=== PATIENT | male | born 1990 | race Caucasian/White ===

== ENCOUNTER 2017-11-17 19:45 | Emergency (ER) | payer SELFPAY ==
[2017-11-17] MEDS ORDERED: Dexamethasone 10 MG/ML VIAL ONE (21:13)
[2017-11-17] MEDS ORDERED: Lidocaine 1% PF 5 ML VIAL ONE ×2 (21:15→21:17)
[2017-11-17] MEDS ORDERED: cefTRIAXone\\ROCEPHIN 500 MG VIAL ONE (21:15)
== END 2017-11-17 22:16 | disposition home or self-care (01) ==
LOC: ERS 19:45
DX: J02.9 Acute pharyngitis, unspecified (principal); F17.210 Nicotine dependence, cigarettes, uncomplicated; Z79.82 Long term (current) use of aspirin
CPT/HCPCS: 87081; 87430; 96372; J0696; J1100; J2001

== ENCOUNTER 2017-11-19 18:16 | Emergency (ER) | payer SELFPAY ==
[2017-11-19] MEDS ORDERED: Clindamycin/D5W 900 mg/50 ml Premix Bag ONE (18:51)
[2017-11-19] MEDS ORDERED: Lidocaine 4% Topical Sol 50 ML BOT ONE (18:52)
[2017-11-19] MEDS ORDERED: Lidocaine 1% w/Epinephrine 1:100K 20 ML VIAL ONE (18:52)
[2017-11-19] MEDS ORDERED: Fentanyl 100 MCG/2 ML VIAL ONE (18:53)
[2017-11-19] MEDS ORDERED: Dexamethasone 4 mg/ml Vial ONE (18:54)
[2017-11-19] MEDS ORDERED: Lidocaine Viscous Sol 2% 15 ml UD Cup ONE (19:31)
[2017-11-19] MEDS ORDERED: Ketorolac Tromethamine 30 MG/ML VIAL ONE (20:32)
== END 2017-11-19 20:53 | disposition home or self-care (01) ==
LOC: ERS 18:16
DX: J36 Peritonsillar abscess (principal); F17.210 Nicotine dependence, cigarettes, uncomplicated; Z86.73 Personal history of transient ischemic attack (TIA), and cerebral infarction without residual deficits; Z79.899 Other long term (current) drug therapy
CPT/HCPCS: 42700; 96365; 96375; J0696; J1100; J1885; J2001; J2270; J3010; J3490

== ENCOUNTER 2018-08-24 04:30 | Inpatient (IN) | payer SELFPAY ==
[2018-08-24 05:29] LABS: #Basophils 0.1 thou/uL (0.0-0.2); #Eosinphils 0.1 thou/uL (0.0-0.7); #Lymphocytes 1.9 thou/uL (1.20-3.40); #Monocytes 0.7 thou/uL (0.11-0.59); #Neutrophils 9.4 thou/uL (1.40-6.50); %Basophils 0.7 % (0.0-1.0); %Eosinophils 0.7 % (0.0-10.0); %Lymphocytes 15.7 % (21.0-51.0); %Monocytes 5.6 % (0.0-10.0); %Neutrophils 77.4 % (42.0-75.0); Mean Corpuscular HGB CONC 34.4 g/dL (32.0-36.0); Mean Corpuscular Hemoglobin 34.7 pg (27.0-31.0); Mean Platelet Volume 7.8 fL (7.4-10.4); Platelet Count 252 thou/uL (130-400); RBC Distribution Width 11.4 % (11.5-14.5); White Blood Cell (WBC) Count 12.1 thou/uL (4.8-10.8)
[2018-08-24 05:37] LABS: Bilirubin Negative (Negative); Blood, Urine Negative (Negative); Clarity CLEAR (Clear); Glucose, Urine (Dipstick) Negative (Negative); Leukocyte Negative (Negative); Nitrite Negative (Negative); Protein, Urine (Dipstick) Negative (Neg-Trace); Specific Gravity, Urine 1.019 (1.002-1.036); pH, Urine 7.5 (5.0-9.0)
[2018-08-24] MEDS ORDERED: Morphine 4 MG/ML VIAL ONE (05:50)
[2018-08-24] MEDS ORDERED: Ondansetron PF 4 MG/2 ML Vial ONE (05:50)
[2018-08-24 05:53] LABS: ALT (SGPT) 23 U/L (8-55); AST (SGOT) 33 U/L (5-34); Albumin 4.7 g/dL (3.5-5.0); Alkaline Phosphatase 100 U/L (40-150); Anion Gap 17 mmol/L (10-20); BUN (Urea Nitrogen) 6 mg/dL (8.9-20.6); Bilirubin, Total 0.5 mg/dL (0.2-1.2); Calc. Creatinine Clearance 0 mL/min (70-130); Calcium 10.3 mg/dL (7.8-10.44); Carbon Dioxide 24 mmol/L (22-29); Chloride 101 mmol/L (98-107); Estimated GFR-MDRD Greater than 90; Globulin 3.6 g/dL (2.4-3.5); Glucose 107 mg/dL (70-105); Lipase 589 U/L (8-78); Protein, Total 8.3 g/dL (6.0-8.3); Sodium 138 mmol/L (136-145)
[2018-08-24 06:26] LABS: CKMB 1.6 ng/mL (0-6.6); Troponin I Less than 0.010 ng/mL (< 0.028)
--- NOTE | 2018-08-24 07:46 | PDOC.FPRHP ---
- History of Present Illness Chief Complaint: abdominal pain History of Present Illness: This is a 28 yo M who presented to the Ed with abdominal pain. Pain started around 2100 last night about an hour after eating dinner. Patient states the pain is more in the mid epigastrium, LUQ and LLQ. Patient characterized the pain as sharp, non radiating and intense pain that is 10/10 at its worst. Laying down made it worst. Not associated with food. Patient states pain has been relieved after given medication in the ED. Patient states symptoms were constant overnight. Patient denies chest pain, NVD, chest pain, palpitations, fever, or chills. ED Course: 8mg IV morphine, 4mg IV zofran, 1L NS - Allergies/Adverse Reactions Allergies Allergy/AdvReac Type Severity Reaction Status Date / Time No Known Drug Allergies Allergy Verified 10/03/13 05:30 - Home Medications Medication Instructions Recorded Confirmed Type Aspirin 325 mg PO DAILY #0 tab 01/30/15 08/24/18 Rx - History PMHx: cerebellar stroke at age 24 PSHx: fixation of thumb fracture FHx: Dad: HTN Social: tobacco use: 1 pack/day for 13 years; alcohol use - 3 beers/day, more on the weekends; denies drug use - Review of Systems General: denies: fever/chills, weight/appetite/sleep changes, night sweats, fatigue Eyes: denies: eye pain, vision changes ENT: denies: nasal congestion, rhinorrhea Respiratory: denies: cough, congestion, shortness of breath Cardiovascular: denies: chest pain, palpitation, edema Gastrointestinal: reports: abdominal pain. denies: nausea, vomiting, diarrhea, constipation Genitourinary: denies: dysuria Skin: denies: rashes, lesions Musculoskeletal: denies: pain, tenderness, stiffness - Vital signs BP: 124/81 HR: 82 RR: 16 Tmax: 98.2 Pox: 98% on RA Wt: 70kg - Physical Exam Constitutional: NAD, awake, alert and oriented, well developed HEENT: normocephalic and atraumatic, PERRLA, EOMI, grossly normal vision, grossly normal hearing Neck: supple, FROM, trachea midline Chest: no-tender to palpation, no lesions Heart: RRR, normal S1/S2, no murmurs/rubs/gallops, pulses present, no edema Lungs: CTAB, no respiratory distress, good air movement, no wheezing -Abdomen: mildly tense, nondistended, guarding, TTP in midepigastrium and WEI and LLQ Musculoskeletal: normal structure, normal tone, ROM grossly normal Neurological: no focal deficit Skin: no rash/lesions, good turgor Psychiatric: normal mood and affect, good judgment and insight, intact recent and remote memory FMR H&P: Results - Labs Result Diagrams: 08/25/18 04:18 08/25/18 04:18 Lab results: WBC 12.1 thou/uL (4.8-10.8) H 08/24/18 05:18 Hgb 16.0 g/dL (14.0-18.0) 08/24/18 05:18 Hct 46.5 % (42.0-52.0) 08/24/18 05:18 MCV 101.0 fL (78.0-98.0) H 08/24/18 05:18 Plt Count 252 thou/uL (130-400) 08/24/18 05:18 Neutrophils % 77.4 % (42.0-75.0) H 08/24/18 05:18 Sodium 138 mmol/L (136-145) 08/24/18 05:18 Potassium 4.0 mmol/L (3.5-5.1) 08/24/18 05:18 Chloride 101 mmol/L (98-107) 08/24/18 05:18 Carbon Dioxide 24 mmol/L (22-29) 08/24/18 05:18 BUN 6 mg/dL (8.9-20.6) L 08/24/18 05:18 Creatinine 0.82 mg/dL (0.6-1.3) 08/24/18 05:18 Glucose 107 mg/dL (70-105) H 08/24/18 05:18 Calcium 10.3 mg/dL (7.8-10.44) 08/24/18 05:18 Total Bilirubin 0.5 mg/dL (0.2-1.2) 08/24/18 05:18 AST 33 U/L (5-34) 08/24/18 05:18 ALT 23 U/L (8-55) 08/24/18 05:18 Alkaline Phosphatase 100 U/L (40-150) 08/24/18 05:18 CK-MB (CK-2) 1.6 ng/mL (0-6.6) 08/24/18 05:18 Serum Total Protein 8.3 g/dL (6.0-8.3) 08/24/18 05:18 Albumin 4.7 g/dL (3.5-5.0) 08/24/18 05:18 Lipase 589 U/L (8-78) H 08/24/18 05:18 Urine Ketones Negative mg/dL (Negative) 08/24/18 05:20 Urine Blood Negative (Negative) 08/24/18 05:20 Urine Nitrite Negative (Negative) 08/24/18 05:20 Ur Leukocyte Esterase Negative (Negative) 08/24/18 05:20 FMR H&P: A/P - Problem List (1) Pancreatitis Current Visit: Yes Status: Acute Code(s): K85.90 - ACUTE PANCREATITIS WITHOUT NECROSIS OR INFECTION, UNSP (2) ETOH abuse Current Visit: No Status: Chronic Code(s): F10.10 - ALCOHOL ABUSE, UNCOMPLICATED (3) History of CVA (cerebrovascular accident) Current Visit: No Status: Chronic Code(s): Z86.73 - PRSNL HX OF TIA (TIA), AND CEREB INFRC W/O RESID DEFICITS (4) Tobacco abuse Current Visit: No Status: Acute Code(s): Z72.0 - TOBACCO USE - Plan Pancreatitis - lipase elevated 589; Will trend lipase - Will give LR @ 150mls/hr - NPO for now; can consider low fat diet once pain improved - Morphine PRN for pain - RUQ US - lipid panel, LDH pending Hx of ETOH - ASE protocol initiated Hx of Tobacco use - 13 pack year smoking hx - Cessation counseling Hx of Marijuana - denies current use - Will order UDS and serum drug Hx of Cerebellar Stroke - aware, continue home ASA DISPO: admit to medical, inpt CODE: FULL Case discussed with Dr. Rod FMR H&P: Upper Level - Pertinent history Patient is a 28 year old male with a history of alcohol abuse who presents to the ED with several hour history of abdominal pain. He has never had pain like this before. He denies nausea, vomiting. He is unsure of what precipitated the pain. - Pertinent findings Vitals: BP: 124/81 HR: 82 RR: 16 Tmax: 98.2 Pox: 98% on RA Physical Exam: General: alert and oriented; in no distress. Abdominal: soft, tenderness to palpation in LUQ, and midepigastrium. No rebound tenderness. Labs as described above. - Plan Date/Time: 08/24/18 8028 I, Susan Alston, have evaluated this patient and agree with findings/plan as outlined by wedding planning internship resident. Pertinent changes/additions are listed here. Acute pancreatitis - will admit patient to medical floor for observation - IV fluids, pain medication. NPO. - Will advance diet as patient is able to tolerate it. Alcohol abuse - will order ASE protocol with prn medications available. Tobacco abuse - nicotine replacement therapy. Prior history of CVA. Attending Addendum - Attending Addendum Date/Time: 08/25/18 0502 I personally evaluated the patient and discussed the management with Dr. Alston and Dr. Scruggs on the morning of 08/24/2018. I agree with the History, Examination, Assessment and Plan documented above with any addition or exceptions noted below.
[2018-08-24 08:24] LABS: Acetaminophen Less than 6.0 mcg/mL (10.0-30.0); Alcohol Less than 10 mg/dL (Less than 10); Salicylate Less than 8.0 mg/dL (15.0-30.0)
[2018-08-24] MEDS ORDERED: Ondansetron ODT 4 MG TAB PO PRN (08:44)
[2018-08-24] MEDS ORDERED: Ondansetron PF 4 MG/2 ML Vial IVP PRN ×2 (08:44→21:59)
[2018-08-24] MEDS ORDERED: Morphine 4 MG/ML VIAL SLOW IVP PRN (08:44)
[2018-08-24] MEDS: Nicotine 21 MG PATCH TD SCH (09:50)
[2018-08-24] MEDS: Lactated Ringer's 1,000 ML IV SCH ×2 (10:09→14:30)
[2018-08-24 11:43] LABS: Amphetamine Not Detected (NotDetected); Barbiturates Screen Not Detected (NotDetected); Benzodiazepine Screen Not Detected (NotDetected); Cocaine Metabolite Screen Not Detected (NotDetected); Medtox Control Line Valid? VALID (VALID); Medtox Reader # READER 1; Methadone Not Detected (NotDetected); Methamphetamine Not Detected (NotDetected); Opiate Screen Detected (NotDetected); Oxycodone Screen Not Detected (NotDetected); Phencyclidine (PCP) Not Detected (NotDetected); THC/Cannabinoid Screen Detected (NotDetected); Tricyclic Screen Not Detected (NotDetected)
[2018-08-24 11:45] LABS: Cardiac Risk 2.4 (Less than 4.5)
[2018-08-24] MEDS ORDERED: ISOVUE-370 76%-LOCM 1 ML ONE (12:05)
[2018-08-24] MEDS: Morphine 2 MG/ML SYRINGE SLOW IVP PRN ×5 (12:33→21:17)
[2018-08-24] MEDS ORDERED: Aspirin 325 MG TAB PO SCH (13:15)
--- NOTE | 2018-08-24 15:36 | ULT ---
ULTRASOUND ABDOMEN LIMITED: (RIGHT UPPER QUADRANT) HISTORY: Epigastric pain and pancreatis in 28-year-old male. FINDINGS: The gallbladder has normal wall thickness and has no evidence of gallstones. The hepatic echogenicit y is normal. The right kidney has normal echogenicity and has no hydronephrosis. The pancreas is vi sualized, although ultrasound is relatively insensitive for pancreatic pathology compared to CT and M RI. There is no biliary dilation. The common duct caliber is 4 mm. IMPRESSION: Normal. chay POS: BENJIE
[2018-08-24] MEDS ORDERED: Melatonin 3 MG TAB PO PRN (18:06)
[2018-08-24] MEDS ORDERED: hydrOXYzine 10 MG TAB PO PRN (18:06)
[2018-08-24] MEDS ORDERED: diphenhydrAMINE 50 MG/ML VIAL IVP PRN ×2 (21:29→21:59)
[2018-08-24] MEDS ORDERED: fentaNYL Citrate/PF 2,000 MCG in Sodium Chloride 0.9% 60 ML IV PRN (21:59)
[2018-08-24] MEDS ORDERED: Zolpidem Tartrate 5 MG TAB PO PRN (21:59)
[2018-08-24] MEDS ORDERED: diphenhydrAMINE 25 MG CAP PO PRN (21:59)
[2018-08-24] MEDS ORDERED: Promethazine HCl 25 MG/ML VIAL IM PRN (21:59)
[2018-08-24] MEDS ORDERED: diphenhydrAMINE 50 MG/ML VIAL IM PRN (21:59)
[2018-08-24] MEDS ORDERED: Naloxone HCl 0.4 mg/ml Vial IV PRN (21:59)
[2018-08-24] MEDS ORDERED: Communication Order-Pharmacy FS SCH (22:00)
--- NOTE | 2018-08-24 23:32 | PDOC.EVN ---
Event Note - Event Note Event Note: Residents called regarding inadequate pain control with morphine. Patient reports pain is improved for about 30 minutes with morphine then is excruciating for the remaining 90 minutes until able to get more relief. He also notes feeling very hungry VSS Gen: awake, alert, oriented HEENT: atraumatic, normocephalic CV: RRR, no murmur noted ABD: tender to palpation in mid-epigastrum, nondistended A/P: Will discuss DIGITAL LEARNING PLATFORMS MANAGER with Anesthesiology and plan for CT tonight to r/o necrotizing pancreatitis. Discussed with patient who is agreeable.
--- NOTE | 2018-08-25 00:12 | CT ---
CT OF THE ABDOMEN AND PELVIS WITH AND WITHOUT CONTRAST: 08/24/18 HISTORY: Abdominal pain, assess for pancreatitis. TECHNIQUE: Axial CT imaging at 2.5 mm intervals through the abdomen and pelvis obtained with and without contras t using a pancreatic mass protocol. Coronal and sagittal reformatted imaging obtained. FINDINGS: The imaged lung bases demonstrate mild increased linear density in the left base which may represent volume loss or scar. Minimal left basilar infiltrate cannot be completely excluded. The liver, gallbladder, spleen, pancreas, adrenal glands, and kidneys demonstrate no acute findings. Probable small cysts noted in upper pole of left kidney measuring approximately 1.1 cm. There is trace nonspecific free fluid noted in the pelvis, abnormal in a male patient. Evaluation of the bowel is limited without oral contrast media. No evidence for bowel inflammatory ch preston or obstruction. Vascular structures of abdomen/pelvis appear patent. No lymphadenopathy is noted within the abdomen o r pelvis. The osseous structures demonstrate no acute findings. There is lower lumbar spine degenerative change, most prominent at the lumbosacral junction. IMPRESSION: Small volume free fluid is noted in the pelvis, nonspecific. The pancreas appears grossly unremarkabl e. Normal CT does not exclude pancreatitis. POS: H
[2018-08-25] MEDS: Lactated Ringer's 1,000 ML IV SCH ×5 (00:17→21:32)
[2018-08-25 04:36] LABS: #Basophils 0.1 thou/uL (0.0-0.2); #Eosinphils 0.1 thou/uL (0.0-0.7); #Lymphocytes 3.3 thou/uL (1.20-3.40); #Monocytes 0.5 thou/uL (0.11-0.59); #Neutrophils 3.2 thou/uL (1.40-6.50); %Basophils 1.5 % (0.0-1.0); %Eosinophils 1.6 % (0.0-10.0); %Lymphocytes 45.5 % (21.0-51.0); %Monocytes 7.4 % (0.0-10.0); Hemoglobin 14.3 g/dL (14.0-18.0); Mean Corpuscular HGB CONC 34.5 g/dL (32.0-36.0); Mean Corpuscular Hemoglobin 35.1 pg (27.0-31.0); Mean Platelet Volume 7.8 fL (7.4-10.4); Platelet Count 210 thou/uL (130-400); RBC Distribution Width 11.3 % (11.5-14.5); Red Blood Cell (RBC) Count 4.08 mill/uL (4.70-6.10); White Blood Cell (WBC) Count 7.4 thou/uL (4.8-10.8)
[2018-08-25 04:59] LABS: Anion Gap 10 mmol/L (10-20); BUN (Urea Nitrogen) 4 mg/dL (8.9-20.6); Calc. Creatinine Clearance 146 mL/min (70-130); Calcium 9.4 mg/dL (7.8-10.44); Carbon Dioxide 28 mmol/L (22-29); Chloride 103 mmol/L (98-107); Estimated GFR-MDRD Greater than 90; Glucose 83 mg/dL (70-105); Lipase 24 U/L (8-78); Potassium 3.7 mmol/L (3.5-5.1); Sodium 137 mmol/L (136-145)
--- NOTE | 2018-08-25 06:40 | PDOC.FM ---
- Subjective Subjective: Patient found resting comfortably in bed this morning. Last night the night team was called about pain control, there was concern for possible narcotizing pancreatitis. A CT was ordered and patient was started on a Fentanyl COMMUNITY SERVICE TECHNICIAN. This morning he states pain is better controlled and he is wanting to eat. - Objective MAR Reviewed: Yes Vital Signs & Weight: Vital Signs (12 hours) Temp Pulse Resp BP BP Pulse Ox 08/25/18 03:50 97.5 F L 64 18 102/68 95 08/24/18 23:50 98.3 F 64 16 114/74 95 08/24/18 20:00 98.3 F 65 16 120/82 120/82 94 L Weight Weight 70.715 kg I&O: 08/23/18 08/24/18 08/25/18 06:59 06:59 06:59 Intake Total 2800 Balance 2800 Result Diagrams: 08/25/18 04:18 08/25/18 04:18 Radiology Reviewed by me: Yes (Normal pancreas. Small amt of pelvic fluid) <Pawan Arzate - Last Filed: 08/25/18 06:37> - Objective Vital Signs & Weight: Vital Signs (12 hours) Temp Pulse Resp BP Pulse Ox 08/25/18 07:28 98.2 F 79 14 109/70 94 L 08/25/18 03:50 97.5 F L 64 18 102/68 95 08/24/18 23:50 98.3 F 64 16 114/74 95 Weight Weight 70.715 kg I&O: 08/24/18 08/25/18 08/26/18 06:59 06:59 06:59 Intake Total 2800 Balance 2800 Result Diagrams: 08/25/18 04:18 08/25/18 04:18 <Marquis Rod - Last Filed: 08/25/18 11:08> Phys Exam - Physical Examination Constitutional: NAD HEENT: moist MMs Neck: no JVD Respiratory: clear to auscultation bilateral Cardiovascular: RRR, no significant murmur Epigastric tenderness. BS x4 Musculoskeletal: no edema Neurological: moves all 4 limbs Psychiatric: A&O x 3 Skin: no rash, normal turgor <Pawan Arzate - Last Filed: 08/25/18 06:37> Dx/Plan (1) Pancreatitis Code(s): K85.90 - ACUTE PANCREATITIS WITHOUT NECROSIS OR INFECTION, UNSP Status: Acute (2) ETOH abuse Code(s): F10.10 - ALCOHOL ABUSE, UNCOMPLICATED Status: Chronic (3) History of CVA (cerebrovascular accident) Code(s): Z86.73 - PRSNL HX OF TIA (TIA), AND CEREB INFRC W/O RESID DEFICITS Status: Chronic (4) Marijuana abuse Code(s): F12.10 - CANNABIS ABUSE, UNCOMPLICATED Status: Chronic - Plan Plan: Pacreatitis secondary to alcohol abuse - yesterday patient had both 2 and 4mg doses of Morphine available, however he was only receiving the 2mg dose. He is doing well on COMMUNITY SERVICE TECHNICIAN, however this will need to be weaned prior to feeding. - will work on stopping COMMUNITY SERVICE TECHNICIAN today and will start with clear diet when he can tolerate pain w/o opiates. - CT last night reassuring EOTH abuse - continue ASE protocol. Patient has gone multiple days in the past without drinking and has no hx of DTs - discussed that the recommended maximum etoh intake per day is 2 - ASE score has been 0 thus far Marijuana use - advise cessation Tobacco use - advise cessation Dispo: patient doing well will work to manage pain with as little opiates as possible, then consider feeding. Likely length of stay is > 48 hours. <Pawan Arzate - Last Filed: 08/25/18 06:37> Attending Addendum - Attending Addendum Date/Time: 08/25/18 1106 I personally evaluated the patient and discussed the management with Dr. Arzate. I agree with the History, Examination, Assessment and Plan documented above with any addition or exceptions noted below. No evidence of necrotizing pancreatitis on CT. Pain is improving this morning. Hopefully he will be able to stop the fentabyl today. Clear liquid diet. Will advance when off fentanyl. <Marquis Rod - Last Filed: 08/25/18 11:08>
[2018-08-25] MEDS: Aspirin 325 MG TAB PO SCH (08:15)
[2018-08-25] MEDS: Nicotine 21 MG PATCH TD SCH (08:15)
[2018-08-25] MEDS: Acetaminophen 500 MG TAB PO SCH ×4 (12:21→21:07)
[2018-08-25] MEDS ORDERED: HYDROcodone/Acetaminophen 10/325 mg Tablet PO PRN (12:42)
[2018-08-25] MEDS ORDERED: Fentanyl 100 MCG/2 ML VIAL SLOW IVP PRN (12:43)
[2018-08-25] MEDS: HYDROcodone/Acetaminophen 10/325 mg Tablet PO PRN (21:33)
[2018-08-26] MEDS: Acetaminophen 500 MG TAB PO SCH ×2 (03:32→05:14)
[2018-08-26] MEDS: Lactated Ringer's 1,000 ML IV SCH (05:13)
[2018-08-26] MEDS ORDERED: Acetaminophen 500 MG TAB PO PRN (06:38)
[2018-08-26] MEDS ORDERED: Lactated Ringer's 1,000 ML IV SCH (06:40)
--- NOTE | 2018-08-26 06:41 | PDOC.FM ---
- Subjective Subjective: Patient seen resting comfortably in bed this morning. There were no acute events over night. Today he complains of only mild abdominal pain. He tolerated clear liquids yesterday. No new symptoms today. - Objective MAR Reviewed: Yes Vital Signs & Weight: Vital Signs (12 hours) Temp Pulse Resp BP Pulse Ox 08/26/18 00:00 98.5 F 76 16 116/72 94 L 08/25/18 20:00 98.7 F 75 16 134/78 96 Weight Weight 70.715 kg I&O: 08/24/18 08/25/18 08/26/18 06:59 06:59 06:59 Intake Total 2800 3411 Balance 2800 3411 Result Diagrams: 08/25/18 04:18 08/25/18 04:18 <Pawan Arzate - Last Filed: 08/26/18 06:35> - Objective Vital Signs & Weight: Vital Signs (12 hours) Temp Pulse Resp BP Pulse Ox 08/26/18 08:00 97 08/26/18 07:58 98.7 F 73 18 127/92 H 97 08/26/18 00:00 98.5 F 76 16 116/72 94 L Weight Weight 70.715 kg I&O: 08/25/18 08/26/18 08/27/18 06:59 06:59 06:59 Intake Total 2800 3411 Balance 2800 3411 Result Diagrams: 08/25/18 04:18 08/25/18 04:18 <Marquis Rod - Last Filed: 08/26/18 11:14> Phys Exam - Physical Examination Constitutional: NAD HEENT: moist MMs Neck: no JVD Respiratory: clear to auscultation bilateral Cardiovascular: RRR, no significant murmur Gastrointestinal: soft, positive bowel sounds epigastric TTP Musculoskeletal: no edema Neurological: moves all 4 limbs Psychiatric: normal affect, A&O x 3 Skin: normal turgor <Pawan Arzate - Last Filed: 08/26/18 06:35> Dx/Plan (1) Pancreatitis Code(s): K85.90 - ACUTE PANCREATITIS WITHOUT NECROSIS OR INFECTION, UNSP Status: Acute (2) ETOH abuse Code(s): F10.10 - ALCOHOL ABUSE, UNCOMPLICATED Status: Chronic (3) History of CVA (cerebrovascular accident) Code(s): Z86.73 - PRSNL HX OF TIA (TIA), AND CEREB INFRC W/O RESID DEFICITS Status: Chronic (4) Marijuana abuse Code(s): F12.10 - CANNABIS ABUSE, UNCOMPLICATED Status: Chronic - Plan Plan: Pacreatitis secondary to alcohol abuse - pt mostly off of opiates, he had 1 [place] 10 yesterday evening and nothing since. He is refusing Tylenol because his feels that he doesnt need it. - Tolerated full liquid diet yesterday - plan to slowly advance diet today EOTH abuse - ASE stopped. ASE has been 0 for entire hospitalization and pt is beyond 72 hours of no etoh intake - discussed that the recommended maximum etoh intake per day is 2 Marijuana use - advise cessation Tobacco use - advise cessation Dispo: Doing well. If he can tolerate a diet today will consider discharge tomorrow. <Pawan Arzate - Last Filed: 08/26/18 06:35> (1) Pancreatitis Code(s): K85.90 - ACUTE PANCREATITIS WITHOUT NECROSIS OR INFECTION, UNSP Status: Acute (2) ETOH abuse Code(s): F10.10 - ALCOHOL ABUSE, UNCOMPLICATED Status: Chronic (3) History of CVA (cerebrovascular accident) Code(s): Z86.73 - PRSNL HX OF TIA (TIA), AND CEREB INFRC W/O RESID DEFICITS Status: Chronic (4) Tobacco abuse Code(s): Z72.0 - TOBACCO USE Status: Acute <Marquis Rod - Last Filed: 08/26/18 11:14> Attending Addendum - Attending Addendum Date/Time: 08/26/18 1114 I personally evaluated the patient and discussed the management with Dr. Arzate. I agree with the History, Examination, Assessment and Plan documented above with any addition or exceptions noted below. POssible dicharge today if does well, or tomorrow. <Marquis Rod - Last Filed: 08/26/18 11:14>
[2018-08-26] MEDS: Aspirin 325 MG TAB PO SCH (08:31)
[2018-08-26] MEDS: Nicotine 21 MG PATCH TD SCH (08:31)
[2018-08-26] MEDS: HYDROcodone/Acetaminophen 10/325 mg Tablet PO PRN ×2 (08:36→12:48)
[2018-08-26 16:38] VITALS: BP 136/87; TEMP 98.4
--- NOTE | 2018-08-28 19:35 | EKG ---
Test Reason : Blood Pressure : / mmHG Vent. Rate : 065 BPM Atrial Rate : 065 BPM P-R Int : 140 ms QRS Dur : 100 ms QT Int : 398 ms P-R-T Axes : 043 070 063 degrees QTc Int : 413 ms Normal sinus rhythm with sinus arrhythmia Early repolarization Normal ECG When compared with ECG of 01-JAN-2016 No changes Confirmed by PAULA DUQUE DO ([id number]), television news video editor DILSHAD TRIANA ([id number]) on 08/28/2018 7:34:41 PM Referred By: Confirmed By:PAULA DUQUE DO
== END 2018-08-26 16:45 | disposition home or self-care (01) | DRG 440 ==
LOC: ERS 04:30 → T4-B 08:32
PROVIDERS: ADMIT Emergency Medicine; ATTEND Emergency Medicine
DX: K85.90 Acute pancreatitis without necrosis or infection, unspecified (principal); F10.10 Alcohol abuse, uncomplicated; Z86.73 Personal history of transient ischemic attack (TIA), and cerebral infarction without residual deficits; Z72.0 Tobacco use; F12.10 Cannabis abuse, uncomplicated
CPT/HCPCS: 36415; 74160; 76705; 80048; 80053; 80061; 80306; 80307; 81003; 82553; 83615; 83690; 84484; 85025; 93005; 96361; 96374; 96375; J1200; J2270; J2405; J3010; J7050; J7120

== ENCOUNTER 2018-10-17 13:21 | Emergency (ER) | payer SELFPAY ==
[2018-10-17] MEDS ORDERED: Lidocaine 1% w/Epinephrine 1:100K 20 ML VIAL ONE (14:00)
== END 2018-10-17 14:52 | disposition home or self-care (01) ==
LOC: ERS 13:21
DX: L02.11 Cutaneous abscess of neck (principal); F17.210 Nicotine dependence, cigarettes, uncomplicated; Z79.82 Long term (current) use of aspirin
CPT/HCPCS: 10061; J2001

== ENCOUNTER 2019-09-12 10:37 | Emergency (ER) | payer SELFPAY ==
[2019-09-12] MEDS ORDERED: Iopamidol-370 76% 500 ML 1 ML ONE (11:40)
[2019-09-12] MEDS ORDERED: Ketorolac Tromethamine 30 MG/ML VIAL ONE (13:30)
[2019-09-12] MEDS ORDERED: cefTRIAXone\\ROCEPHIN 2 GM VIAL ONE (13:30)
[2019-09-12] MEDS ORDERED: Dexamethasone 10 MG/ML VIAL ONE (13:36)
[2019-09-12] MEDS ORDERED: Morphine 4 MG/ML VIAL ONE (13:51)
--- NOTE | 2019-09-12 14:14 | CT ---
CT OF THE SOFT TISSUES OF THE NECK WITH IV CONTRAST INDICATION: Sore throat for 3 days COMPARISON: MR the brain dated January 20, [address] the brain dated January 01, 2016 FINDINGS: Aerodigestive tract: There is mild gaseous distention of the piriform sinuses. No suspicious lesion is seen along the course of the aerodigestive tract. There is enlargement and a striated enhancement pattern of the palatine tonsils consistent with tonsillitis. The parapharyngeal space is preserved. Parotids/Submandibular/Thyroid glands: Normal. Lymph nodes: There are mildly prominent bilateral level 2A lymph nodes. The enlarged lymph node on t he right measures 1.6 cm. The lymph node on the left measures 1.7 cm. Lung Apices: There is paraseptal emphysema involving the right lung apex. Bones: No acute osseous abnormality. Incidentals: There is encephalomalacia involving the superior aspect of the right cerebellum. This i s consistent patient's history of prior stroke in this region. There is [id number] mucosal thickening involving the maxillary sinuses and ethmoid air cells appear IMPRESSION: [place] tonsillitis. No drainable fluid collection is evident. Mild reactive lymphadenopathy of the upper neck. [id number] paranasal sinus disease.
== END 2019-09-12 14:56 | disposition home or self-care (01) ==
LOC: ERS 10:37
DX: J03.90 Acute tonsillitis, unspecified (principal); F17.210 Nicotine dependence, cigarettes, uncomplicated; Z79.82 Long term (current) use of aspirin
CPT/HCPCS: 70491; 87081; 87430; 96365; 96375; J0696; J1100; J1885; J2270; Q9967

== ENCOUNTER 2021-03-01 11:26 | Emergency (ER) | payer SELFPAY ==
[~2021-03-01 11:26] MED LIST: Iopamidol-370 76% 500 ML 1 ML ONE
[2021-03-01 11:50] LABS: Hemoglobin 14.8 g/dL (14.0-18.0); Mean Corpuscular HGB CONC 33.8 g/dL (32.0-36.0); Mean Corpuscular Hemoglobin 35.8 pg (27.0-31.0); Mean Platelet Volume 7.7 fL (7.4-10.4); Platelet Count 199 thou/uL (130-400); RBC Distribution Width 11.6 % (11.5-14.5); Red Blood Cell (RBC) Count 4.12 mill/uL (4.70-6.10); White Blood Cell (WBC) Count 10.6 thou/uL (4.8-10.8)
[2021-03-01] MEDS ORDERED: Ketorolac Tromethamine 30 MG/ML VIAL ONE (11:54)
[2021-03-01 12:12] LABS: #Basophils 0.1 thou/uL (0.0-0.2); #Eosinphils 0.1 thou/uL (0.0-0.7); #Lymphocytes 1.9 thou/uL (1.20-3.40); #Neutrophils 7.6 thou/uL (1.40-6.50); %Basophils 0.7 % (0.0-1.0); %Eosinophils 0.8 % (0.0-10.0); %Lymphocytes 17.8 % (21.0-51.0); %Monocytes 9.2 % (0.0-10.0); %Neutrophils 71.5 % (42.0-75.0); Anion Gap 12 mmol/L (10-20); BUN (Urea Nitrogen) 6 mg/dL (8.9-20.6); Calc. Creatinine Clearance 0 mL/min (70-130); Calcium 9.3 mg/dL (7.8-10.44); Carbon Dioxide 25 mmol/L (22-29); Chloride 104 mmol/L (98-107); Glucose 98 mg/dL (70-105); MDiff Complete? YES; Macrocytosis SLIGHT = 6-15 cells (100X) (0-5/hpf); Platelet Morphology Comment Appears Adequate; Potassium 3.8 mmol/L (3.5-5.1); Sodium 137 mmol/L (136-145)
[2021-03-01 12:32] LABS: ALT (SGPT) 19 U/L (8-55); AST (SGOT) 23 U/L (5-34); Albumin 4.1 g/dL (3.5-5.0); Alkaline Phosphatase 102 U/L (40-110); Anion Gap 13 mmol/L (10-20); BUN (Urea Nitrogen) 6 mg/dL (8.9-20.6); Bilirubin, Total 0.3 mg/dL (0.2-1.2); Calc. Creatinine Clearance 0 mL/min (70-130); Calcium 9.4 mg/dL (7.8-10.44); Carbon Dioxide 25 mmol/L (22-29); Chloride 104 mmol/L (98-107); Globulin 3.1 g/dL (2.4-3.5); Glucose 99 mg/dL (70-105); Lipase 22 U/L (8-78); Potassium 3.9 mmol/L (3.5-5.1); Protein, Total 7.2 g/dL (6.0-8.3); Sodium 138 mmol/L (136-145)
[2021-03-01 13:12] LABS: Bilirubin Negative (Negative); Blood, Urine Negative (Negative); Clarity Clear (Clear); Glucose, Urine (Dipstick) Normal (Negative); Ketone, Urine Negative (Negative); Leukocyte Negative Leu/uL (Negative); Nitrite Negative (Negative); Protein, Urine (Dipstick) Negative (Neg-Trace); Urobilinogen Normal mg/dL (Less than 2)
[2021-03-01 13:15] LABS: Specific Gravity, Urine Greater than 1.060 (1.002-1.036)
== END 2021-03-01 14:17 | disposition home or self-care (01) ==
LOC: ERS 11:26
DX: K52.9 Noninfective gastroenteritis and colitis, unspecified (principal); R91.1 Solitary pulmonary nodule; F17.210 Nicotine dependence, cigarettes, uncomplicated
CPT/HCPCS: 36415; 74177; 80048; 81003; 83690; 85025; 96374; J1885; Q9967

== ENCOUNTER 2023-04-28 11:36 | Emergency (ER) | payer OTHER, SELFPAY ==
[2023-04-28 12:20] LABS: #Basophils 0.1 thou/uL (0.0-0.2); #Monocytes 0.7 thou/uL (0.11-0.59); %Basophils 0.5 % (0.0-1.0); %Eosinophils 0.4 % (0.0-10.0); %Lymphocytes 17.1 % (21.0-51.0); %Monocytes 6.7 % (0.0-10.0); %Neutrophils 74.9 % (42.0-75.0); Hemoglobin 15.6 g/dL (14.0-18.0); Mean Corpuscular HGB CONC 34.5 g/dL (32.0-36.0); Mean Corpuscular Hemoglobin 33.9 pg (27.0-31.0); Mean Corpuscular Volume 98.3 fl (78.0-98.0); Mean Platelet Volume 9.7 fL (7.4-10.4); Platelet Count 247 10x3/uL (130-400); RBC Distribution Width 12.7 % (11.5-14.5); White Blood Cell (WBC) Count 10.7 10x3/uL (4.8-10.8)
[2023-04-28 12:46] LABS: ALT (SGPT) 20 U/L (8-55); AST (SGOT) 26 U/L (5-34); Albumin 4.7 g/dL (3.5-5.0); Alkaline Phosphatase 101 U/L (40-110); Anion Gap 13 mmol/L (10-20); BUN (Urea Nitrogen) 12 mg/dL (8.9-20.6); Bilirubin, Total 0.5 mg/dL (0.2-1.2); CK (CPK) 313 U/L (30-200); Calc. Creatinine Clearance 0 mL/min (70-130); Carbon Dioxide 25 mmol/L (22-29); Chloride 103 mmol/L (98-107); Estimated GFR 98; Globulin 3.1 g/dL (2.4-3.5); Glucose 90 mg/dL (70-105); Lipase 22 U/L (8-78); Potassium 4.6 mmol/L (3.5-5.1); Protein, Total 7.8 g/dL (6.0-8.3); Sodium 136 mmol/L (136-145)
[2023-04-28] MEDS ORDERED: Ondansetron PF 4 MG/2 ML Vial ONE (12:56)
== END 2023-04-28 14:04 | disposition home or self-care (01) ==
LOC: ERS 11:36
DX: T67.2XXA Heat cramp, initial encounter (principal); E86.0 Dehydration; F17.210 Nicotine dependence, cigarettes, uncomplicated; X32.XXXA Exposure to sunlight, initial encounter; Y92.69 Other specified industrial and construction area as the place of occurrence of the external cause; Z79.82 Long term (current) use of aspirin; Z86.73 Personal history of transient ischemic attack (TIA), and cerebral infarction without residual deficits
CPT/HCPCS: 36415; 71045; 80053; 82550; 83690; 84484; 85025; 93005; 96361; 96374; J2405

== ENCOUNTER 2024-08-09 12:26 | Emergency (ER) | payer SELFPAY ==
[2024-08-09] MEDS ORDERED: HYDROcodone/Acetaminophen 5/325 mg Tablet ONE (14:40)
[2024-08-09] MEDS ORDERED: Ibuprofen 200 MG TAB ONE (15:25)
[2024-08-09] MEDS ORDERED: Bacitracin 1 PK ONE (15:25)
[2024-08-09] MEDS ORDERED: Lidocaine 1% w/Epinephrine 1:100K 20 ML VIAL ONE (15:25)
[2024-08-09] MEDS ORDERED: Acetaminophen 500 MG TAB ONE (15:25)
== END 2024-08-09 15:35 | disposition home or self-care (01) ==
LOC: ERS 12:26
DX: L02.416 Cutaneous abscess of left lower limb (principal); L03.116 Cellulitis of left lower limb; F17.210 Nicotine dependence, cigarettes, uncomplicated
CPT/HCPCS: 10060